=== PATIENT | female | born 1935 | race Caucasian/White ===

== ENCOUNTER 2025-05-27 09:21 | Outpatient (CLI) | payer MEDICARE | END 2025-05-27 09:22 | disposition home or self-care (01) | LOC: CSHMRI 09:21 | PROVIDERS: ATTEND Specialist | DX: M47.26 Other spondylosis with radiculopathy, lumbar region (principal); N28.9 Disorder of kidney and ureter, unspecified | CPT/HCPCS: 72148 ==